=== PATIENT | female | born 1980 | race Caucasian/White ===

== ENCOUNTER → 2016-06-09 | Outpatient (CLI) | payer MEDICAID, OTHER ==
--- NOTE | 2016-06-09 14:32 | NUR ---
Drug/alcohol evaluation/2 hrs/ Client was referred by [facility] after her son was removed from the home when she was pulled over while driving neighbors car and there was a meth pipe they found which was not hers. The neighbor admitted it was his the case was dropped. She reports she then relapsed and started using meth. Then she got 2 more charges an inten to deliver and posession of controled substance meth. She spent 2 yrs in senior living for a posession of meth charge in 2012. Client had some treatment in senior living but nothing else. Last meth use was . Recommendations are to attend an IOP program but will staff to see if others think different.
--- NOTE | 2016-06-13 08:32 | CDE ---
ADMIT: 06/09/2016 RM/LOC: [facility] MR#: [id number] [address] [facility] [address] [place] [id number] TEA HOLLOWAY [address] [place] [address] Chemical Dependency Evaluation SEX: F AGE: 35 : 1980 A. DEMOGRAPHICS: NAME: Tea Ruby DATE OF : 1980 EVALUATING COUNSELOR: HIPOLITO Mari, [facility] DATE OF EVALUATION: 06/09/2016 B. PRESENTING PROBLEM/CHIEF COMPLAINT: This client is a adult female, age 35, who lives in [place], [place]. She is presenting for this drug and alcohol evaluation after her son was put into foster care when she was pulled over and they found a meth pipe in the car. She reports that it was her neighbor's car and she did not know the meth pipe was in there. The neighbor did confess and the charges were dropped. However, right after this, the client said she had been clean from using and this spiraled her down to where she started using meth again and then she got 2 more charges. First in January of 2016, she got a possession of a controlled substance meth, and then in April, she got a charge of intent to deliver. These charges are still pending. C. MEDICAL HISTORY: Client reports that she has had a when she had her son and she reports that otherwise, she is healthy. She is currently with her second child. She does have an allergy to penicillin. D. WORK/SCHOOL/ HISTORY: This client reports she has a college degree. Her last employment was in February of 2016. She was employed by [employer]. 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 She reports that she has never lost any job due to her using. She has never been in the . E. ALCOHOL/DRUG ASSESSMENT SUMMARY: ALCOHOL: Client reports that she never drank alcohol. MARIJUANA: She has never used marijuana. COCAINE: She has never used cocaine. METHAMPHETAMINES: She first used at age 15 by smoking it. The amount increased to using daily first thing in the morning and she would use 1-2 times a day. She reported she last used 04/24/2016. However, her case preparer and liner reports that she used meth at the end of April. She has been testing clean for 3 weeks. HALLUCINOGENS: Client denies any use. HEROIN: Client denies any use. MISUSE OF PRESCRIPTION DRUGS: Never abused them. OTHER DRUGS (INHALANTS, OVER THE COUNTER, ETC): Denies any use. NICOTINE: Started smoking at age 16. She smokes daily half a cigarette a day. ADMIT: 06/09/2016 RM/LOC: [facility] MR#: [id number] [address] [place] [id number] [facility] [place], [place] [id number] Chemical Dependency Evaluation SEX: F AGE: 35 : 1980 F. LEGAL HISTORY: Client reports that in 2012, she got a possession of a controlled substance, methamphetamine, and she went to [facility] from 2012 to 2013. She has current charges of possession of a controlled substance, methamphetamine, and intent to deliver and these charges are pending. G. FAMILY/SOCIAL/PEER HISTORY: Client said she was raised by her biological parents in [place] and she had a good upbringing. She does report that her parents when she was 2. She does not really feel like that has affected her. Her relationship with her mother is good. Relationship with stepfather good. She does not know her biological father. She has never lived in a foster home. She describes as a child she felt safest with her mother. Her mother was her . She has 1 child, 13 months, and she is currently , and she is not in a relationship. Her son is currently in foster care. H. PSYCHIATRIC/BEHAVIORAL HISTORY: Client was asked if she has ever been suicidal and she reported no, and there is no family history of suicide. She has never had any treatment for mental health issues. I. COLLATERAL INFORMATION: Contacted client's case preparer and liner at [facility] and I told her what this client had reported, that she had not used since the first part of April. The case preparer and liner said that she had actually used at the end of April. She does report that the client has been staying clean for 3 weeks. THE DRINKER TYPE RATING: Is a measure of how the client perceives their own drinking and/or using. This rating is indicative of how resistant or accepting the person is to the drinking problem. The client chose their rating from the following classifications: ALCOHOL Total Abstainer Light Social (non-problem) Drinker Moderate Social (non-problem) Drinker User Heavy Social (non-problem)Drinker Problem Drinker Alcoholic OTHER DRUG Nonuser ADMIT: 06/09/2016 RM/LOC: [facility] MR#: [id number] [address] [place] [phone] TEA HOLLOWAY [address] [place] [id number] Chemical Dependency Evaluation SEX: F AGE: 35 : 1980 Light Social (non-problem) User Moderate Social (non-problem) User Heavy Social (non-problem) User Problem User Addicted/Dependent The client rated for alcohol, total abstainer, and for other drugs, problem user. SUBSTANCE ABUSE SUBTLE SCREENING INVENTORY (SASSI): The SASSI is an assessment tool specifically designed to provide a clearer picture of what lies beneath the facade presented by most patients or clients. Scores on this assessment aid in distinguishing nonabusers from abusers, alcoholics from drug abusers and nondefensive clients from defensive ones. The incorporation of a "denial scale" further enhances the ability to make an accurate recommendation. Client scores are: Face Valid Alcohol (FVA): 0. Face Valid Other Drugs (FVOD): 7. Symptoms (SYM): 3. Obvious Attributes (OAT): 4. Subtle Attributes (SAT): 6. Defensiveness (DEF): 7. Supplemental Addiction Measure (MESHA): 9. Family versus Controls (FAM): 11. Correctional (COR): 6. Random Answering Pattern (RAP): --- The decision rule shows a low probability of a substance use disorder. K. CLINICAL IMPRESSION: Client was cooperative during the evaluation and answered all questions and had good eye contact. 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 Criteria showing this diagnosis is tolerance. Client has needed increased amounts to achieve the effects, continued use despite knowledge of persistent or recurrent psychological problems caused or exacerbated by the continued use despite persistent or recurrent social or interpersonal problems caused or exacerbated by the use, recurrent use resulting in failure to fulfill major obligations at work, school, or home, cravings or strong desires to use, great deal of time spent in activities obtaining or using or recovering from the effects, and taking in larger amounts or over a longer period than was intended. Consequences client has had from her drug use is legal. She has gone to [facility] ADMIT: 06/09/2016 RM/LOC: [facility] MR#: [id number] [address] [place] [phone] TEA HOLLOWAY [address] [place] [address] Chemical Dependency Evaluation SEX: F AGE: 35 : 1980 and she has 2 charges pending. She has had her child removed and placed in foster care due to her use. Relationship problems. L. RECOMMENDATIONS PRESENTED TO CLIENT: Recommendations are for this client to attend the residential treatment program and follow any aftercare plans set up by her and her counselor. CLIENT/FAMILY RESPONSE: This client was unsure how she could do residential with everything she needs to do right now in her life. ASAM CLINICAL ASSESSMENT CRITERIA: Low/Medium/High Dimension 1 = Intoxication and Withdrawal (i.e. history of withdrawal, level of current use): Medium to high. Dimension 2 = Medical (i.e. , diabetes, medications, chronic conditions): Medium. Dimension 3 = Emotional/Behavior Conditions (i.e. psych history, impulsivity, depression, anxiety, trauma history): Medium to high. Dimension 4 = Treatment Acceptance/Resistance (i.e. past history, minimization/blame, acknowledgement of problem, pressure to seek treatment, does not feel they have a problem): Medium to high. Dimension 5 = Relapse Potential (i.e. inability to abstain, use despite consequences, significant preoccupation, relapse despite outpatient treatment attempts): High. ADMIT: 06/09/2016 RM/LOC: [facility] MR#: [id number] [address] [place] [phone] TEA HOLLOWAY [address] [place] [id number] Chemical Dependency Evaluation SEX: F AGE: 35 : 1980 Dimension 6 = Recovery/Living Environment (i.e. current users reside in environment, family attitude, lack of consistent adult support in living environment, high exposure to using in social/work environment): High. CRIMINOGENIC RISK FACTORS: Low/Moderate/High Antisocial Attitudes: Medium. Antisocial Peers: Medium. Self Control Skills: Medium. Family Dysfunction: Medium. Past Criminality: Medium to high. HIPOLITO Mari, ROSS/ katt JOB #: [id number] CC:
== END | disposition home or self-care (01) ==
LOC: ADTC.GI 12:36
DX: F15.20 Other stimulant dependence, uncomplicated (principal)

== ENCOUNTER 2016-06-24 17:55 | Outpatient (CLI) | payer MEDICAID | END 2016-06-24 21:35 | disposition home or self-care (01) | LOC: 2LDRP 17:55 → BC 17:55 | DX: O99.89 Other specified diseases and conditions complicating pregnancy, childbirth and the puerperium (principal); R10.9 Unspecified abdominal pain; Z3A.35 35 weeks gestation of pregnancy ==